=== PATIENT | male | born 1935 | race Caucasian/White ===

== ENCOUNTER 2018-11-28 06:33 | Emergency (ER) | payer MEDICARE, MEDICAID ==
[~2018-11-28] VITALS: Ht 167.6 cm; Wt 80.0 kg
--- NOTE | 2018-11-28 06:42 | NUR ---
PT STATES RECENT URETHRAL "WIDENING" PROCEDURE Oct. STATES CATH TAKEN OUT ON Oct AND HAS BEEN STRAIGHT CATHING FOR URINATION TWICE PER DAY SINCE Oct FOR URINARY RETENTION, PER HIS UROLOGIST ORDER. STATES WOKE UP AT 0000 THIS AM W/ INCREASED URGENCY TO URINATE AND "JUST BLOOD COMIN' OUT, NO URINE." PT DENIES ANY HYPOTENSIVE SYMPTOMS. MONITORING APPLIED. VSS. CALL LIGHT WITHIN REACH. PA AT BEDSIDE.
[2018-11-28] MEDS ORDERED: LISI-167 PO (06:47)
[2018-11-28] MEDS ORDERED: CARV12.52 PO (06:47)
[2018-11-28] MEDS ORDERED: CHOL10002 PO (06:47)
[2018-11-28] MEDS ORDERED: WARF-36 PO (06:47)
[2018-11-28] MEDS ORDERED: ATOR10TA9 PO (06:47)
[2018-11-28] MEDS ORDERED: ASPI-496 PO (06:47)
[2018-11-28 07:11] LABS: BASOPHILS # (AUTO) 0.03 x10^3/uL (0-0.1); BASOPHILS % (AUTO) 0 % (0-1); EOSINOPHILS # (AUTO) 0.02 x10^3/uL (0-0.4); EOSINOPHILS % (AUTO) 0 % (1-7); LYMPHOCYTES # (AUTO) 1.78 x10^3/uL (1-3.4); LYMPHOCYTES % (AUTO) 16 % (22-44); MD NO; MEAN CORPUSCULAR HEMOGLOBIN 27.6 pg (27.5-34.5); MEAN CORPUSCULAR HGB CONC 32.5 g/dL (33.2-36.2); MEAN CORPUSCULAR VOLUME 84.9 fL (81-97); MEAN PLATELET VOLUME 9.2 fL (7.4-10.4); MONOCYTES # (AUTO) 0.64 x10^3/uL (0.2-0.8); MONOCYTES % (AUTO) 6 % (2-9); NEUTROPHILS % (AUTO) 78 % (42-75); PLATELET COUNT 271 x10^3/uL (130-400); RED BLOOD COUNT 4.52 x10^6/uL (4.38-5.82); RED CELL DISTRIBUTION WIDTH 15.5 % (9.4-14.8)
[2018-11-28] MEDS ORDERED: MORPHINE SULFATE 4 MG/ML, 1ML ONE ×2 (07:12→07:36)
[2018-11-28] MEDS ORDERED: ONDANSETRON ODT 4 MG ONE (07:12)
[2018-11-28 07:22] LABS: ALANINE AMINOTRANSFERASE 27 U/L (12-78); ALBUMIN 3.3 g/dL (3.4-5.0); ANION GAP 6 mmol/L (5-15); CALCIUM 8.3 mg/dL (8.5-10.1); CHLORIDE 110 mmol/L (98-107); CREATININE 1.52 mg/dL (0.7-1.3)
--- NOTE | 2018-11-28 07:23 | NUR ---
SONKENYETTA, CALLED. UPDATED HIM, WITH PATIENT'S APPROVAL, ON PLAN OF CARE.
--- NOTE | 2018-11-28 07:24 | NUR ---
MEDICATED PATIENT WITH ZOFRAN AND MORPHINE FOR PAIN. SETTING UP FOR CBI AT THE ORDER OF MARTA LUCIANO
[2018-11-28 07:25] LABS: ALKALINE PHOSPHATASE 82 U/L (45-117); BILIRUBIN,TOTAL 0.6 mg/dL (0.2-1.0); TOTAL PROTEIN 6.9 g/dL (6.4-8.2)
[2018-11-28 07:26] LABS: INTERNATIONAL NORMALIZED RATIO 3.76 (0.93-1.1); PROTHROMBIN TIME 37.5 Seconds (9.6-11.5)
[2018-11-28] MEDS ORDERED: SODIUM CHLORIDE FLUSH 10ML SYR IVF ONE (07:30)
[2018-11-28] MEDS ORDERED: ONDANSETRON ODT 4 MG PO ONE (07:30)
[2018-11-28] MEDS ORDERED: morphine SULFATE 10 MG/ML, 1ML IVPush ONE (07:30)
[2018-11-28] MEDS ORDERED: HYDROcodone/APAP 5/325 TABLET PO ONE (07:30)
[2018-11-28] MEDS ORDERED: LIDOCAINE 2%,20 ML JEL.PF.APP MM ONE (07:40)
[2018-11-28] MEDS ORDERED: MORPHINE SULFATE 4 MG/ML, 1ML IVPush ONE (08:00)
[2018-11-28 08:59] LABS: CULTURE INDICATED? YES; MICROSCOPIC INDICATED
[2018-11-28 09:44] VITALS: BP 115/49
--- NOTE | 2018-11-28 09:45 | NUR ---
BEDSIDE PT REPORT FROM PERCY LUCAS. PT CARE TO BE ASSUMED. PT A&OX4, RESP EVEN & UNLABORED, SPEECH CLEAR, SKIN WNL. BLADDER IRRIGATION IN PROGRESS, PINK-TINGED FLUID IN MCGRAW COLLECTION BAG. PER LANCE, 500ML FLUID PREVIOUSLY DRAINED. PT UP FOR DC.
--- NOTE | 2018-11-28 10:53 | NUR ---
1530ML DARK RED FLUID DRAINED FROM MCGRAW COLLECTION BAG. PT DENIES LIGHTHEADEDNESS, DIZZINESS. INSTRUCTED PT TO RETURN TO ED IF HE EXPERIENCES THOSE SX. COLLECTION BAG DC'D, LEG BAG APPLIED; MCGRAW DRAINING DARK RED FLUID. LEG BAG USED DISCUSSED W/ PT. EXTRA (LARGER) COLLECTION BAG GIVEN TO PT FOR NIGHT USE. INSTRUCTIONS ON SWITCHING BAGS PROVIDED. WRITTEN DC INSTRUCTIONS DISCUSSED W/ PT; UNDERSTANDING VERBALIZED.
== END 2018-11-28 11:00 | disposition home or self-care (01) ==
LOC: ED 07:47
DX: N28.9 Disorder of kidney and ureter, unspecified (principal); R31.0 Gross hematuria; D64.9 Anemia, unspecified; R73.9 Hyperglycemia, unspecified; I25.10 Atherosclerotic heart disease of native coronary artery without angina pectoris; E78.5 Hyperlipidemia, unspecified; I10 Essential (primary) hypertension; Z95.1 Presence of aortocoronary bypass graft
CPT/HCPCS: 36415; 80053; 81001; 85025; 85610; 87086; 96374; 99283; J2270; Q0162

== ENCOUNTER 2018-11-29 08:50 | Inpatient (IN) | payer MEDICARE, MEDICAID ==
[~2018-11-29] VITALS: Ht 167.6 cm; Wt 78.9 kg
[2018-11-29] VITALS (7 sets, daily range): BP systolic 87–125; BP diastolic 43–74
[~2018-11-29 08:50] MED LIST: ASPI-496 PO; ATOR10TA9 PO; CARV12.52 PO; CHOL10002 PO; LISI-167 PO; WARF-36 PO
--- NOTE | 2018-11-29 09:27 | NUR ---
150 ML BLOODY URINE EMPTIED FROM LEG BAG. COLLECTION BAG COLLECTED TO EXISTING 3-WAY CATHETER AND 2 LITERS OF NORMAL SALINE FLUID CONNECTED TO 3 WAY CATHETER AND PLACED TO GRAVITIY. FLUID ACTIVELY ENTERING THROUGH CATHETER AND INTO COLLECTION BAG. PT TOLERATING WELL AT THIS TIME. WILL CONTINUE TO MONITOR
[2018-11-29 09:48] LABS: ANION GAP 5 mmol/L (5-15); CALCIUM 7.8 mg/dL (8.5-10.1); CHLORIDE 111 mmol/L (98-107); CREATININE 2.35 mg/dL (0.7-1.3)
[2018-11-29 09:49] LABS: INTERNATIONAL NORMALIZED RATIO 4.9 (0.93-1.1); PROTHROMBIN TIME 48.4 Seconds (9.6-11.5)
[2018-11-29 09:59] LABS: BASOPHILS # (AUTO) 0.03 x10^3/uL (0-0.1); BASOPHILS % (AUTO) 0 % (0-1); EOSINOPHILS # (AUTO) 0.09 x10^3/uL (0-0.4); EOSINOPHILS % (AUTO) 1 % (1-7); LYMPHOCYTES # (AUTO) 2.12 x10^3/uL (1-3.4); LYMPHOCYTES % (AUTO) 20 % (22-44); MD NO; MEAN CORPUSCULAR HEMOGLOBIN 27.3 pg (27.5-34.5); MEAN CORPUSCULAR HGB CONC 32.1 g/dL (33.2-36.2); MEAN PLATELET VOLUME 9.5 fL (7.4-10.4); MONOCYTES # (AUTO) 0.65 x10^3/uL (0.2-0.8); MONOCYTES % (AUTO) 6 % (2-9); NEUTROPHILS # (AUTO) 7.67 x10^3/uL (1.8-6.8); NEUTROPHILS % (AUTO) 73 % (42-75); PLATELET COUNT 262 x10^3/uL (130-400); RED BLOOD COUNT 3.48 x10^6/uL (4.38-5.82); RED CELL DISTRIBUTION WIDTH 15.4 % (9.4-14.8)
--- NOTE | 2018-11-29 10:11 | NUR ---
CONTINUE TO IRRIGATE BLADDER WITH URINE LESS DARK RED. LITERS 3 AND 4 INFUSING. PT TOLERATING
--- NOTE | 2018-11-29 10:19 | NUR ---
MD SPEAKING WITH PT REGARDING PLAN OF CARE AND ANTICIPATED ADMISSION. PER MD TO CONTINUE IRRIGATING BLADDER
--- NOTE | 2018-11-29 10:20 | NUR ---
paged dr castellanos urology for dr lockhart
[2018-11-29] MEDS ORDERED: SODIUM CHLORIDE 0.9% 1,000ML IVBOLUS ONE (10:30)
[2018-11-29] MEDS ORDERED: PHYTONADIONE 10 MG/ML, 1ML SQ ONE (10:30)
[2018-11-29] MEDS ORDERED: SODIUM CHLORIDE FLUSH 10ML SYR IVF ONE (10:30)
[2018-11-29] MEDS ORDERED: PHYTONADIONE 10 MG/ML, 1ML ONE (10:33)
--- NOTE | 2018-11-29 10:51 | NUR ---
CONSENT OBTAINED FOR BLOOD. LITERS 5 AND 6 INFUSING WITH BLADDER IRRIGATION.
--- NOTE | 2018-11-29 10:55 | NUR ---
dr lockhart spoke with dr castellnaos
--- NOTE | 2018-11-29 11:07 | NUR ---
ADDITIONAL NORMAL SALINE BAGS HUNG TO CONTINUE BLADDER IRRIGATION.
--- NOTE | 2018-11-29 11:21 | NUR ---
RPT TO HARIS GREER
--- NOTE | 2018-11-29 11:29 | NUR ---
FFP INFUSION COMPLETED. PT TO FLOOR WITH TECH. CONTINUOUS BLADDER IRRIGATION IN PLACE. PT IN NO DISTRESS
[2018-11-29] MEDS ORDERED: morphine SULFATE 10 MG/ML, 1ML IVPush PRN (15:00)
[2018-11-29] MEDS ORDERED: ACETAMINOPHEN 325 MG TABLET PO PRN (15:00)
[2018-11-29] MEDS ORDERED: ONDANSETRON ODT 4 MG PO PRN (15:00)
[2018-11-29] MEDS ORDERED: GUAIFENESIN/COD200MG-20MG/10ML LIQUID PO PRN (15:00)
[2018-11-29] MEDS ORDERED: DOCUSATE 100 MG CAPSULE PO PRN (15:00)
[2018-11-29] MEDS ORDERED: LABETALOL 5MG/ML, 20ML IVPush PRN (15:00)
[2018-11-29] MEDS ORDERED: OXYcodone IR 5MG TABLET PO PRN (15:00)
[2018-11-29] MEDS ORDERED: LABETALOL 5 MG/ML SYRINGE IVPush PRN (15:04)
[2018-11-29] MEDS: SODIUM CHLORIDE 0.9% 1,000 ML IV SCH ×2 (15:20→22:07)
[2018-11-29 18:03] LABS: INTERNATIONAL NORMALIZED RATIO 2.26 (0.93-1.1)
[2018-11-29] MEDS: ATORVASTATIN 40 MG TABLET PO SCH (19:38)
[2018-11-29] MEDS: CARVEDILOL 12.5 MG TABLET PO SCH (19:38)
[2018-11-30] VITALS (8 sets, daily range): BP systolic 92–150; BP diastolic 52–65
[2018-11-30 05:39] LABS: INTERNATIONAL NORMALIZED RATIO 1.54 (0.93-1.1); PROTHROMBIN TIME 15.9 Seconds (9.6-11.5)
[2018-11-30 05:46] LABS: CHLORIDE 115 mmol/L (98-107)
[2018-11-30 05:48] LABS: ANION GAP 5 mmol/L (5-15); CALCIUM 6.9 mg/dL (8.5-10.1); CREATININE 1.44 mg/dL (0.7-1.3); MEAN CORPUSCULAR HEMOGLOBIN 27.4 pg (27.5-34.5); MEAN CORPUSCULAR HGB CONC 32.4 g/dL (33.2-36.2); MEAN CORPUSCULAR VOLUME 84.7 fL (81-97); MEAN PLATELET VOLUME 9.3 fL (7.4-10.4); PLATELET COUNT 199 x10^3/uL (130-400); RED CELL DISTRIBUTION WIDTH 15.5 % (9.4-14.8)
[2018-11-30 06:15] LABS: BASOPHILS # (AUTO) 0.02 x10^3/uL (0-0.1); BASOPHILS % (AUTO) 0 % (0-1); EOSINOPHILS # (AUTO) 0.35 x10^3/uL (0-0.4); EOSINOPHILS % (AUTO) 4 % (1-7); LYMPHOCYTES % (AUTO) 32 % (22-44); MD SCAN; MONOCYTES # (AUTO) 0.72 x10^3/uL (0.2-0.8); MONOCYTES % (AUTO) 8 % (2-9); NEUTROPHILS # (AUTO) 5.27 x10^3/uL (1.8-6.8); NEUTROPHILS % (AUTO) 56 % (42-75)
[2018-11-30] MEDS: CARVEDILOL 12.5 MG TABLET PO SCH ×2 (08:11→19:39)
[2018-11-30] MEDS: CHOLECALCIFEROL 1,000 UNIT TABLET PO SCH (08:11)
[2018-11-30] MEDS: ATORVASTATIN 40 MG TABLET PO SCH (19:39)
[2018-12-01 01:19] VITALS: BP 134/67
[2018-12-01 04:57] LABS: BASOPHILS # (AUTO) 0.02 x10^3/uL (0-0.1); BASOPHILS % (AUTO) 0 % (0-1); EOSINOPHILS # (AUTO) 0.38 x10^3/uL (0-0.4); EOSINOPHILS % (AUTO) 5 % (1-7); LYMPHOCYTES # (AUTO) 2.35 x10^3/uL (1-3.4); LYMPHOCYTES % (AUTO) 29 % (22-44); MD NO; MEAN CORPUSCULAR HEMOGLOBIN 28.5 pg (27.5-34.5); MEAN CORPUSCULAR HGB CONC 33.2 g/dL (33.2-36.2); MEAN CORPUSCULAR VOLUME 85.8 fL (81-97); MEAN PLATELET VOLUME 9.1 fL (7.4-10.4); MONOCYTES # (AUTO) 0.68 x10^3/uL (0.2-0.8); MONOCYTES % (AUTO) 8 % (2-9); NEUTROPHILS # (AUTO) 4.71 x10^3/uL (1.8-6.8); NEUTROPHILS % (AUTO) 58 % (42-75); PLATELET COUNT 164 x10^3/uL (130-400); RED BLOOD COUNT 2.76 x10^6/uL (4.38-5.82); RED CELL DISTRIBUTION WIDTH 15.8 % (9.4-14.8)
[2018-12-01 05:04] LABS: INTERNATIONAL NORMALIZED RATIO 1.16 (0.93-1.1); PROTHROMBIN TIME 12.1 Seconds (9.6-11.5)
[2018-12-01 05:12] LABS: ANION GAP 4 mmol/L (5-15); CALCIUM 7.6 mg/dL (8.5-10.1); CHLORIDE 116 mmol/L (98-107)
[2018-12-01 05:14] LABS: CREATININE 1.08 mg/dL (0.7-1.3)
[2018-12-01 07:12] VITALS: BP 126/67
[2018-12-01] MEDS: CARVEDILOL 12.5 MG TABLET PO SCH ×2 (08:22→20:19)
[2018-12-01] MEDS: CHOLECALCIFEROL 1,000 UNIT TABLET PO SCH (09:00)
[2018-12-01 12:02] VITALS: BP 108/55
[2018-12-01 19:30] VITALS: BP 146/67
[2018-12-01] MEDS: ATORVASTATIN 40 MG TABLET PO SCH (20:19)
[2018-12-02 01:49] VITALS: BP 114/65
[2018-12-02 05:42] LABS: INTERNATIONAL NORMALIZED RATIO 1.07 (0.93-1.1); PROTHROMBIN TIME 11.2 Seconds (9.6-11.5)
[2018-12-02 05:46] LABS: BASOPHILS # (AUTO) 0.02 x10^3/uL (0-0.1); BASOPHILS % (AUTO) 0 % (0-1); EOSINOPHILS # (AUTO) 0.42 x10^3/uL (0-0.4); EOSINOPHILS % (AUTO) 5 % (1-7); LYMPHOCYTES # (AUTO) 2.42 x10^3/uL (1-3.4); LYMPHOCYTES % (AUTO) 30 % (22-44); MD NO; MEAN CORPUSCULAR HEMOGLOBIN 28.8 pg (27.5-34.5); MEAN CORPUSCULAR VOLUME 84.9 fL (81-97); MONOCYTES # (AUTO) 0.72 x10^3/uL (0.2-0.8); MONOCYTES % (AUTO) 9 % (2-9); NEUTROPHILS # (AUTO) 4.37 x10^3/uL (1.8-6.8); NEUTROPHILS % (AUTO) 55 % (42-75); PLATELET COUNT 164 x10^3/uL (130-400); RED BLOOD COUNT 2.89 x10^6/uL (4.38-5.82); RED CELL DISTRIBUTION WIDTH 15.7 % (9.4-14.8)
[2018-12-02 05:48] LABS: CHLORIDE 113 mmol/L (98-107)
[2018-12-02 05:58] LABS: ANION GAP 4 mmol/L (5-15); CALCIUM 7.9 mg/dL (8.5-10.1); CREATININE 0.99 mg/dL (0.7-1.3)
[2018-12-02 06:32] VITALS: BP 129/73
[2018-12-02] MEDS: CARVEDILOL 12.5 MG TABLET PO SCH (08:19)
[2018-12-02] MEDS: CHOLECALCIFEROL 1,000 UNIT TABLET PO SCH (08:19)
[2018-12-02] MEDS ORDERED: FERR325T18 PO (11:10)
[2018-12-02 13:03] VITALS: BP 115/58
== END 2018-12-02 15:27 | disposition home or self-care (01) | DRG 813 ==
LOC: ED 10:55 → EDIP 11:21 → 3NE 11:44 → DCLOUNGE 12-02 15:13
PROVIDERS: ADMIT Hospitalist; ATTEND Hospitalist
PROC: 30233K1 Transfusion of Nonautologous Frozen Plasma into Peripheral Vein, Percutaneous Approach (ICD-10-PCS; principal; 2018-11-30)
PROC: 30233N1 Transfusion of Nonautologous Red Blood Cells into Peripheral Vein, Percutaneous Approach (ICD-10-PCS; 2018-11-30)
DX: D68.32 Hemorrhagic disorder due to extrinsic circulating anticoagulants (principal); N17.0 Acute kidney failure with tubular necrosis; D62 Acute posthemorrhagic anemia; I42.0 Dilated cardiomyopathy; N32.0 Bladder-neck obstruction; D68.9 Coagulation defect, unspecified; R31.0 Gross hematuria; I95.9 Hypotension, unspecified; E78.5 Hyperlipidemia, unspecified; I10 Essential (primary) hypertension; I25.10 Atherosclerotic heart disease of native coronary artery without angina pectoris; I48.91 Unspecified atrial fibrillation; Y92.89 Other specified places as the place of occurrence of the external cause; R33.8 Other retention of urine; E61.1 Iron deficiency; N40.1 Benign prostatic hyperplasia with lower urinary tract symptoms; T45.515A Adverse effect of anticoagulants, initial encounter; Z98.42 Cataract extraction status, left eye; Z79.01 Long term (current) use of anticoagulants; Z82.49 Family history of ischemic heart disease and other diseases of the circulatory system; Z95.1 Presence of aortocoronary bypass graft; Z98.41 Cataract extraction status, right eye
CPT/HCPCS: 36415; 36430; 80048; 82728; 83540; 83550; 83735; 85014; 85018; 85025; 85610; 86850; 86900; 86923; 93005; 96372; 99291; G0378; J3430; J2270; J7030; P9016; P9017

== ENCOUNTER 2018-12-02 20:05 | Emergency (ER) | payer MEDICARE, MEDICAID ==
[~2018-12-02 20:05] MED LIST changes: +FERR325T18 PO
== END 2018-12-02 20:13 | disposition left against medical advice (07) ==
LOC: ED 20:07
DX: T83.098A Other mechanical complication of other urinary catheter, initial encounter (principal); Z53.21 Procedure and treatment not carried out due to patient leaving prior to being seen by health care provider